=== PATIENT | male | born 1975 | race Caucasian/White ===

== ENCOUNTER 2016-09-21 18:41 | Emergency (ER) | payer MEDICARE, OTHER ==
[~2016-09-21] VITALS: Ht 188 cm; Wt 68.0 kg
[~2016-09-21 18:41] MED LIST: ACET325 PO; BACT800T5 PO; DICY10CA13 PO; DOCU1CAP39 PO; GABA300C3 PO; HYDR-4197 PO; IBUP600T26 PO; LIPA1CAP4 PO; OMEP20TA PO; OXYC40 PO; TRAZ150T75 PO; XANA1TAB6 PO
[2016-09-21 18:45] VITALS: BP 162/98; PULSE 89; RESP 17; TEMP 98.2; O2SAT 96
== END 2016-09-22 02:00 | disposition left against medical advice (07) ==
LOC: NED 18:41
DX: S01.81XA Laceration without foreign body of other part of head, initial encounter (principal)
CPT/HCPCS: 99281